=== PATIENT | male | born 1990 | race Caucasian/White ===

== ENCOUNTER 2016-12-12 06:53 | Observation (INO) | payer BC, OTHER ==
[~2016-12-12] VITALS: Ht 177.8 cm; Wt 75.5 kg
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
--- NOTE | ~2016-12-12 | ECHO ---
Transthoracic Echocardiography Report (TTE) Demographics Patient Name LIVE HILLMAN Date of Study 12/12/2016 Patient Number [id number] Visit Number [id number] Date of 1990 Room Number [id number] Accession Number [id number] Gender Male Age 26 year(s) Referring August POWERS Authorization Rep Scott Perera Physician RDCS, RVT Physician Interpreting Yesi Terry [employer] Quality Inspector Physician MD Supervising Ordering Physician August POWERS MD/MLP [facility] Licensed Practical Nurse Conclusions Contractility Score Summary Normal Left Ventricular contractility was noted. Summary Normal LV/RV size and systolic function. The estimated left ventricular ejection fraction is 60-65%. Normal biatrial sizes. No significant valvular abnormalities. No evidence of pericardial effusion. Procedure Type of Study TTE procedure:2D Echocardiogram. Procedure Date Date: 12/12/2016 Start: 03:25 PM Study Location: Inpatient Portable Technical Quality: Adequate visualization Indications:Irregular Heartbeat. Appropriate Use Criteria: 9 Patient Status: Routine HR: 72 bpm BP: 127/72 mmHg M-Mode/2D Measurements LV Diastolic Dimension: 4.14 cm LV Systolic Dimension: 2.29 cm LV Septum Diastolic: 0.77 cm LV PW Diastolic: 0.87 cm AO Root Dimension: 2.9 cm Cardiac Output: 4.81 l/min LA Dimension: 2.9 cm LVOT: 2.2 cm LVOT VTI: 17.6 cm RV Base: 3.26 cm LV Stroke volume: 66.87 ml RV Length: 6.46 cm TAPSE: 3.01 cm TDI-S': 15.4 cm/s Doppler Measurements AV Peak Velocity: 1.17 m/s MV Peak E-Wave: 0.76 m/s AV Peak Gradient: 5.48 mmHg MV Peak A-Wave: 0.59 m/s AV Mean Gradient: 3 mmHg MV E/A Ratio: 1.29 LVOT Peak Velocity: 1.01 m/s MV P1/2t: 121 msec TR Gradient:11.83 mmHg PV Peak Velocity: 1.06 m/s PV Peak Gradient: 4.49 mmHg E' Septal Velocity: 0.13 m/s A' Septal Velocity: 0.08 m/s E' Lateral Velocity: 0.15 m/s A' Lateral Velocity: 0.11 m/s Findings Left Ventricle Normal left ventricle size and function. Diastolic assessment reveals normal relaxation. Right Ventricle Normal right ventricle structure and function. Left Atrium Normal left atrial size. Right Atrium Normal right atrial size. IVC measures 1.9 cm with inspiratory collapse. Mitral Valve Normal mitral valve structure and function. Aortic Valve Normal aortic valve structure and function. Tricuspid Valve Normal tricuspid valve structure and function. Pulmonic Valve Normal pulmonic valve structure and function. Pericardial Effusion No evidence of pericardial effusion. Miscellaneous Visualized portions of the aortic root and ascending aorta appear normal in size. Pleural Effusion No evidence of pleural effusion. Contractility Score LV regional wall motion:(0-Non visualized 1-Normal 2-Hypokinesis 3-Akinesis 4-Dyskinesis 5-Aneurysm) Signature dtt: NURIS ALVARADO dtd: 12/12/16 1525 Physician Self Edit
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
[2016-12-12 07:48] LABS: BASOPHIL # 0.1 K/uL (0.0-0.2); BASOPHIL % 0.7 %; EOSINOPHIL # 0.3 K/uL (0.0-0.5); EOSINOPHIL % 2.5 %; HEMATOCRIT 46.7 % (37.0-53.0); HEMOGLOBIN 15.8 g/dL (12.0-17.0); IMMATURE GRANULOCYTE # 0.1 K/uL (0.0-0.3); IMMATURE GRANULOCYTE % 0.4 %; LYMPHOCYTE # 1.9 K/uL (0.8-4.0); LYMPHOCYTE % 16.3 %; MCH 30.5 pg (27.0-34.0); MCHC 33.8 gm/dL (32.0-36.5); MCV 90.2 fl (83.0-98.0); MONOCYTE # 0.6 K/uL (0.0-1.0); MONOCYTE % 5.3 %; MPV 9.6 fl (9.4-12.4); NEUTROPHIL # (ANC) 8.8 K/uL (1.4-9.0); NEUTROPHIL % 74.8 %; NRBC % 0 /100WBC (0-0.00); PLATELET COUNT 318 K/uL (150-450); RBC 5.18 M/uL (4.00-6.00); WBC 11.7 K/uL (4.0-11.0)
[2016-12-12 07:58] LABS: INR - (THERAPEUTIC) 0.98 (0.92-1.07); PROTIME 10.3 SECONDS (9.8-11.4); PTT 23 SECONDS (25-32)
[2016-12-12 08:25] LABS: ALBUMIN 4.2 gm/dL (3.5-5.0); ALK PHOS 54 IU/L (33-138); ALT 42 IU/L (12-78); ANION GAP 10.7 (10.0-19.0); AST 60 IU/L (10-40); BLOOD UREA NITROGEN 17 mg/dL (6-24); CALCIUM 9.1 mg/dL (8.5-10.5); CHLORIDE 106 mMol/L (96-110); CO2 26 mMol/L (22-32); CREATININE 1.2 mg/dL (0.6-1.3); ESTIMATED GFR (MDRD EQUATION) > 60; POTASSIUM 3.7 mMol/L (3.7-5.1); SODIUM 139 mMol/L (135-145); TOTAL BILIRUBIN 0.6 mg/dL (0.0-1.5); TOTAL PROTEIN 7.8 g/dL (6.0-8.4)
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
[2016-12-12 15:39] LABS: CPK 504 IU/L (35-332)
--- NOTE | 2016-12-12 17:29 | NUR ---
Significant Event: Patient alert and oriented x3. VSS, on room air. Patient's heart rate irregular, Kendee notified. EKG and ECHO done. Cardiac enzymes done. Will have follow up EKG in AM. Scattered abrasions throughout body, see integumentary charting. [place] and dilaudid given for pain with relief noted. L) arm in sling. IV to R) wrist infusing NS at 100 mL/hr. Follow up: VS q 4 hours. Up as tolerated. Regular diet.
--- NOTE | 2016-12-13 04:25 | NUR ---
Significant Event: A/Ox3. States tingling to left fingers. Slightly weaker in left upper extremity. Left arm in sling and splint - c/d/i. Abrasion on chin, chest, shoulder. Abrasion to back neosporin applied. Abrasions to knees allevyn patches - c/d/i. Rates pain 3-6/10. Pain controlled with [place]. IV to right forearm running normal saline at 100ml/hr. Up 1 assist. Afebrile. Heart rate 60s-80s. SBP 120s-150s. Lungs clear on room air. No complaints of dizziness or lightheaded when up. Blood pressure WNL after getting up. Remained in sinus rhythm throughout night. Follow up: Repeat EKG.
[2016-12-13 05:32] LABS: BASOPHIL # 0.1 K/uL (0.0-0.2); BASOPHIL % 0.7 %; EOSINOPHIL # 0.2 K/uL (0.0-0.5); EOSINOPHIL % 2.5 %; HEMOGLOBIN 12.5 g/dL (12.0-17.0); IMMATURE GRANULOCYTE % 0.2 %; LYMPHOCYTE # 1.6 K/uL (0.8-4.0); LYMPHOCYTE % 18.2 %; MCH 30.8 pg (27.0-34.0); MCV 90.9 fl (83.0-98.0); MONOCYTE # 0.9 K/uL (0.0-1.0); MONOCYTE % 10.3 %; MPV 9.6 fl (9.4-12.4); NEUTROPHIL # (ANC) 6.1 K/uL (1.4-9.0); NEUTROPHIL % 68.1 %; NRBC % 0 /100WBC (0-0.00); RBC 4.06 M/uL (4.00-6.00); WBC 8.9 K/uL (4.0-11.0)
[2016-12-13 05:39] LABS: HEMATOCRIT 36.9 % (37.0-53.0); MCHC 33.9 gm/dL (32.0-36.5); PLATELET COUNT 198 K/uL (150-450)
[2016-12-13 05:43] LABS: ALBUMIN 3.2 gm/dL (3.5-5.0); BLOOD UREA NITROGEN 10 mg/dL (6-24); CALCIUM 7.7 mg/dL (8.5-10.5); CHLORIDE 107 mMol/L (96-110); CO2 24 mMol/L (22-32); CREATININE 0.8 mg/dL (0.6-1.3); ESTIMATED GFR (MDRD EQUATION) > 60; PHOSPHORUS 3.1 mg/dL (2.5-4.9); SODIUM 138 mMol/L (135-145)
--- NOTE | 2016-12-13 12:18 | NUR ---
Introduced self and role of care management to patient and his father. He states that he is normally able to do all his own ADL's. He has family that can assist if needed. He plans on going home with his father on discharge. He denies any needs at this time. Will continue to follow.
[2016-12-13] MEDS ORDERED: NEOSPORIN1 PKT TOP (12:44)
[2016-12-13] MEDS ORDERED: NORCO 5-325 TA1 EACH PO (12:57)
== END 2016-12-13 13:45 | disposition disaster alternative care site (69) ==
LOC: GACC 06:53 → GICU 13:12
PROVIDERS: Family Medicine; Physician Assistant; ADMIT Surgery
DX: S42.101A Fracture of unspecified part of scapula, right shoulder, initial encounter for closed fracture (principal); S52.502A Unspecified fracture of the lower end of left radius, initial encounter for closed fracture; S52.512A Displaced fracture of left radial styloid process, initial encounter for closed fracture; I95.9 Hypotension, unspecified; V49.9XXA Car occupant (driver) (passenger) injured in unspecified traffic accident, initial encounter; Y92.411 Interstate highway as the place of occurrence of the external cause; Z88.7 Allergy status to serum and vaccine
CPT/HCPCS: G0378; G0480; J1170; J3010; J7030